=== PATIENT | male | born 1965 | race Caucasian/White ===

== ENCOUNTER 2025-08-08 13:48 | Emergency (ER) | payer BC, SELFPAY ==
--- NOTE | 2025-08-08 13:45 | RT.EKG_ITS ---
APPROVED REPORT Exam: Resting ECG Reason for Exam: SOB Patient Location: E HR:81 bpm ECG Measurements Heart Rate 81 AXIS AL 142 P 77 QRSd 81 QRS 43 QT 367 T 54 QTc 427 Conclusion Sinus rhythm...normal P axis, V-rate 60- 99 Probable left atrial enlargement...P >50mS, <-0.10mV V1 Physician: No STEMI
[2025-08-08 13:50] VITALS: BP 129/80; PULSE 79; RESP 18; TEMP 36.6; O2SAT 98
--- NOTE | 2025-08-08 14:15 | DI.RAD_ITS ---
Exam(s) XR PORTABLE CHEST AP EXAM: XR PORTABLE CHEST AP CLINICAL HISTORY: SOB TECHNIQUE: 2D digital imaging was performed of the chest. One image was obtained. An AP view was obtained. COMPARISON: No exams were available for comparison FINDINGS: MEDIASTINUM: Normal. HEART: Normal. PULMONARY VASCULATURE: Normal. LUNGS: Clear. PLEURAL SPACE: No pleural effusion or pneumothorax. BONE:Within normal limits for the patient's age. OTHER FINDINGS:The tip of the right subclavian central venous catheter is in good position at the junction of the superior vena cava and right atrium. IMPRESSION: No acute pulmonary findings. DATA REPOSITORY: RADIATION DOSE DELIVERED:
[2025-08-08 14:20] VITALS: BP 129/80; PULSE 79; RESP 18; TEMP 36.6; O2SAT 98
--- NOTE | 2025-08-08 14:45 | DI.CT_ITS ---
Exam(s) CT CHEST PE CTA EXAM: CT CHEST PE CTA CLINICAL HISTORY: hx of CA, with SOB. TECHNIQUE: Imaging Protocol: CT angiography of the chest was performed using pulmonary embolus protocol. Multi planar reconstructions were performed. CONTRAST MATERIAL: Intravenous: Omnipaque 350 Contrast volume: 100 cc COMPARISON: No exams were available for comparison FINDINGS: CHEST: PULMONARY ARTERIES: There are no intraluminal filling defects to suggest acute pulmonary emboli. LUNGS: There are no infiltrates nor evidence of pulmonary infarction.. No ominous pulmonary nodules and there are no pleural effusions. MEDIASTINUM: There is no hilar nor mediastinal adenopathy. Visualized thyroid unremarkable. The distal tip of the right Port-A-Cath is in the mid-lower right atrium. CARDIAC: Heart size is upper normal. There is no pericardial effusion.Caliber of the thoracic aorta is within normal limits. No dissection. There is no significant shift of the interventricular septum. PARTIALLY VISUALIZED UPPERMOST ABDOMEN: No adrenal masses. OSSEOUS: No significant osseous lesions.No fractures.. IMPRESSION: 1. No evidence of acute pulmonary emboli. No evidence of pulmonary infarction.No lung nodules nor infiltrates and no pleural effusions. No intrathoracic adenopathy. Called by myself to ER physician on 08/08/2025 at 5:08 p.m. RADIATION DOSE DELIVERED: 88.47mGy.cm Total DLP DATA REPOSITORY: All CT scans at this facility are submitted to the National Radiology Data Registry (NRDR) Dose Index Registry (DIR) with the [employer] (A[employer]). RADIATION OPTIMIZATION: All CT scans at this facility use at least one of these dose optimization techniques: automated exposure control; mA and/or kV adjustment per patient size (includes targeted exams where dose is matched to clinical indication); or iterative reconstruction.
--- NOTE | 2025-08-08 14:55 | ED.GENADUL_ITS ---
Discharge Plan Disposition Patient Disposition: Home Discharge Details Clinical Impression: SOB (shortness of breath) Primary Care Provider: Carmencita Marshall ED Provider: Matthew Hmalin Home Meds and New Rx's Prescriptions: No Action No Known Home Meds Discharge Instructions Instructions: Shortness of Breath, Adult ED Additional Instructions: Your evaluation today is reassuring that you do not have a left for any possible such as a blood clot in your lungs or heart attack today. Please follow-up with your primary care provider regarding your visit to the emergency department today. Be sure to discuss results of all test performed here today to include radiology, and laboratory testing as well as results for any pending cultures. Should your symptoms worsen, or if you develop new concerning symptoms, please return immediately emergency department for further evaluation. Discharge Data Discharge Date/Time-TO BE ENTERED AT DEPARTURE: 08/08/25 18:12 HPI General Date/Time Provider Initiated Documentation: 08/08/25 14:19 . 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 Differential Diagnosis: - Pulmonary embolism: Cancer diagnosis and recent inactivity. Blood work to assess kidney function. CT scan to rule out pulmonary embolism. Anticoagulant therapy if clot detected. - Pneumonia: Shortness of breath and recent cough. Further evaluation if CT scan negative. - Cardiac issues: Positional nature of symptoms and ability to walk long distances without shortness of breath. EKG and cardiac enzyme tests. ED Course: 1450 Patient evaluated, lab and imaging orders placed. At this time patient has no significant pain or nausea to treat Results reviewed. EKG troponin within normal limits. CT pulmonary embolism study negative for pulmonary embolism, or any other acute pathology. Patient is stable for discharge at this time. Clinical Impression: -Shortness of breath Disposition: Discharge: Home. Return if symptoms worsen or new symptoms develop. This document was created with assistance from [employer]. The patient consented to its use. Disposition: Home HPI: The patient is a 60-year-old male with a diagnosis of left-sided squamous cell carcinoma of the neck, currently undergoing cisplatin chemotherapy infusions, presenting with dyspnea. The patient reports experiencing dyspnea for the past week, particularly exacerbated by activities such as bending down or engaging in physical exertion. He has been largely inactive for the past 2.5 months. He does not experience dyspnea at rest but notes its presence during activities such as stair climbing and arm movement. He was able to walk without difficulty yesterday but had to pause while handling firewood due to dyspnea. He denies experiencing fever, chills, chest pain, peripheral edema, or hemoptysis. He has had a cough for the past week, which is not related to food intake. The patient has completed one cycle of chemotherapy and five sessions of radiation therapy, with the last session occurring at approximately 0800 hours. He reports weakness in his left arm, which has shown improvement but has not been utilized recently. There have been no significant changes in the size of the mass or associated pain. The patient's family history is notable for heart disease; his father of a myocardial infarction at the age of 45. The patient has a history of smoking for 10 years, having quit 30 years ago. He has no personal history of cardiovascular disease, hypertension, or hypercholesterolemia. ROS: Negative besides as mentioned above Exam: Vital signs: Reviewed. General Appearance: Alert and oriented. No acute distress. HEENT: NCAT, EOMI, not icteric. External ears normal. No rhinorrhea. Moist mucous membranes. Neck: Supple, full range of motion, there is a swollen ulcerated lymph node over the left anterior base of the neck, No meningeal sign. Respiratory: Clear breath sounds bilaterally, no wheezes, rales, or rhonchi. Cardiovascular: Regular heart sounds, no murmurs, gallops, or rubs. Gastrointestinal: Soft, nondistended, No rebound tenderness. Back: No midline tenderness to palpation or palpable step-offs of the C/T/L spine. Musculoskeletal: No pain on calf compression, no lower extremity edema. Skin: Warm and dry, no rash. Neurological: Normal Gait, Grossly intact. Psychiatric: Appropriate for situation. Rhythm: NSR Rate: 81 [place]: Normal axis Intervals: Normal intervals Other findings: No acute ST segment or T wave changes to suggest acute ischemia. Labs: Laboratory Tests Range/Units 08/08/25 08/08/25 08/08/25 15:13 15:23 16:51 WBC (4.4-10.8) 10^3/uL 8.92 RBC (4.36-5.78) 10^6/uL 4.93 Hgb (13.5-17.5) g/dL 14.7 Hct (40.0-50.0) % 42.8 MCV (80-95) fL 87 MCH (27.0-33.0) pg 29.8 MCHC (32.0-36.0) % 34.3 RDW (11.8-14.1) % 12.6 Plt Count (130-400) 10^3/uL 308 MPV (8.0-11.0) fL 9.3 Immature Gran % % 0.4 Neutrophils % % 73.6 Lymphocytes % % 15.8 Monocytes % % 9.2 Eosinophils % % 0.8 Basophils % % 0.2 Nucleated RBC % (0.0-0.3) % 0.0 Absolute Neutrophils (1.2-6.7) 10^3/uL 6.56 Absolute Lymphocytes (1.2-3.4) 10^3/uL 1.41 Absolute Monocytes (0.1-0.8) 10^3/uL 0.82 H Absolute Eosinophils (0.0-0.7) 10^3/uL 0.07 Absolute Basophils (0.0-0.2) 10^3/uL 0.02 D-Dimer (<500) ng/mlFEU 629 H VBG Lactate (<or=2.0) mmol/L 0.7 Sodium (136-145) mmol/L 135 L Potassium (3.5-5.1) mmol/L 4.0 Chloride (98-107) mmol/L 99 Carbon Dioxide (21.0-32.0) mmol/L 27.1 Anion Gap (3-11) mmol/L 8.9 BUN (7-18) mg/dL 28 H Creatinine (0.70-1.30) mg/dL 1.1 Est GFR (CKD-EPI 2020) (mL/min/1.73m2) 76.85 Glucose (74-106) mg/dL 111 H Calcium (8.5-10.1) mg/dL 9.6 Magnesium (1.8-2.4) mg/dL 2.1 Total Bilirubin (0.2-1.0) mg/dL 0.6 AST (15-37) U/L 19 ALT (16-63) U/L 40 Alkaline Phosphatase (46-116) U/L 89 Troponin I (<or=76) ng/L 6 Cancelled NT-Pro-B Natriuret Pep (<300) pg/mL 39 Total Protein (6.4-8.2) g/dL 7.7 Albumin (3.4-5.0) g/dL 3.3 L Urine Color (Yellow) Yellow Urine Clarity (Clear) Clear Urine pH (5-8) 5.0 Ur Specific [place] (1.005-1.025) 1.015 Urine Protein (Neg-Trace) mg/dL 30 H Urine Ketones (Negative) mg/dL Negative Urine Blood (Negative) Negative Urine Nitrite (Negative) Negative Urine Bilirubin (Negative) Negative Urine Urobilinogen (Up to 0.2) mg/dL 0.2 Ur Leukocyte Esterase (Negative) Negative Urine RBC (0-2) HPF 0-2 Urine WBC (0-5) HPF 0-2 Ur Epithelial Cells (Negative) HPF Few Urine Crystals (Negative) HPF Negative Urine Bacteria (Negative) HPF Rare Urine Casts (Negative) LPF 0-2 Hyaline Urine Mucus (Negative) Trace Ur Culture Indicated? No Urine Glucose (Negative) mg/dL Negative Radiology: Exam(s) XR PORTABLE CHEST AP EXAM: XR PORTABLE CHEST AP CLINICAL HISTORY: SOB TECHNIQUE: 2D digital imaging was performed of the chest. One image was obtained. An AP view was obtained. COMPARISON: No exams were available for comparison FINDINGS: MEDIASTINUM: Normal. HEART: Normal. PULMONARY VASCULATURE: Normal. LUNGS: Clear. PLEURAL SPACE: No pleural effusion or pneumothorax. BONE:Within normal limits for the patient's age. OTHER FINDINGS:The tip of the right subclavian central venous catheter is in good position at the junction of the superior vena cava and right atrium. IMPRESSION: No acute pulmonary findings. DATA REPOSITORY: Related Data Home Medications ?Medication ?Instructions ?Recorded ?Confirmed Unknown [No Known Home Meds] 08/08/25 0 08/08/25 Allergies Allergy/AdvReac Type Severity Reaction Status Date / Time No Known Allergies Allergy Unverified 08/08/25 13:53 General Stated Complaint: SOB ALENA: 3 Course Vital Signs Vital signs: Vital Signs Temperature 36.6 C 08/08/25 13:50 Pulse 79 08/08/25 13:50 Respiratory Rate 18 08/08/25 13:50 Blood Pressure 129/80 08/08/25 13:50 Pulse Oximetry 98 08/08/25 13:50 Temperature 36.6 C 08/08/25 13:50 Temperature Source Oral 08/08/25 13:50 Pulse 79 08/08/25 13:50 Respiratory Rate 18 08/08/25 13:50 Blood Pressure 129/80 08/08/25 13:50 Pulse Oximetry 98 08/08/25 13:50 Oxygen Delivery Method Room Air 08/08/25 13:50 Oxygen Flow Rate 0 08/08/25 13:50 Pain Level 0 08/08/25 13:50 PFSH All Active Problems (Updated 08/08/25 @ 17:15 by Matthew Hamlin MD) SOB (shortness of breath) (Acute) Social History Smoking/Tobacco Use Status: Never Smoking risk assessment performed?: Yes Alcohol Intake: never Drug use: Occasionally Substance use type: marijuana Housing: house Do you feel safe at home: Yes Do you feel safe in your relationship?: Yes
[2025-08-08 15:19] VITALS: RESP 18
[2025-08-08 15:25] LABS: Abs Immature Grans 0.04 10^3/uL (0.0-0.06); HCT 42.8 % (40.0-50.0); HGB 14.7 g/dL (13.5-17.5); Immature Grans % 0.4 %; MCH 29.8 pg (27.0-33.0); MCHC 34.3 % (32.0-36.0); MCV 87 fL (80-95); MPV 9.3 fL (8.0-11.0); Platelet Count 308 10^3/uL (130-400); RBC 4.93 10^6/uL (4.36-5.78); RDW 12.6 % (11.8-14.1); RDW-SD 39.8 fL; WBC 8.92 10^3/uL (4.4-10.8)
[2025-08-08 15:51] LABS: D-Dimer 629 ng/mlFEU (<500)
[2025-08-08 16:02] LABS: ALT 40 U/L (16-63); AST 19 U/L (15-37); Albumin 3.3 g/dL (3.4-5.0); Alkaline Phosphatase 89 U/L (46-116); Anion Gap 8.9 mmol/L (3-11); BUN 28 mg/dL (7-18); Bilirubin, Total 0.6 mg/dL (0.2-1.0); CO2 27.1 mmol/L (21.0-32.0); Calcium 9.6 mg/dL (8.5-10.1); Chloride 99 mmol/L (98-107); Estimated GFR 76.85 (mL/min/1.73m2); Glucose 111 mg/dL (74-106); Magnesium 2.1 mg/dL (1.8-2.4); NT-proBNP 39 pg/mL (<300); Potassium 4.0 mmol/L (3.5-5.1); Sodium 135 mmol/L (136-145); Total Protein 7.7 g/dL (6.4-8.2); Troponin I 6 ng/L (<or=76)
[2025-08-08] MEDS: Normal Saline - Diluent 50 ML VIAL IJ (16:38)
[2025-08-08] MEDS: Omnipaque 350 MG/ML 100 ML BTL IJ (16:38)
[2025-08-08 17:00] LABS: Glucose Negative (Negative)
[2025-08-08 17:05] VITALS: BP 139/85; PULSE 63; RESP 15; O2SAT 98
[2025-08-08 17:09] LABS: C & S Indicated? No; RBC 0-2 HPF (0-2); WBC 0-2 HPF (0-5)
[2025-08-08 18:09] VITALS: BP 150/88; PULSE 66; RESP 18; TEMP 36.7; O2SAT 96
== END 2025-08-08 18:12 | disposition home or self-care (01) ==
PROVIDERS: Emergency Provider General Practice; PCP Family Medicine
DX: R11.0 Nausea (principal); R06.02 Shortness of breath; C76.0 Malignant neoplasm of head, face and neck; Z92.21 Personal history of antineoplastic chemotherapy
CPT/HCPCS: 36415; 71275; 80053; 93005; 99285; 71045; 81003; 81015; 83605; 83735; 83880; 84484; 85025; 85379; 93010; J3490

== ENCOUNTER 2025-08-22 03:41 | Outpatient (RCR) | payer BC, SELFPAY ==
[2025-08-08] MEDS: Normal Saline Flush 10 ML SYR IVP (10:23)
[2025-08-08 10:37] LABS: Abs Immature Grans 0.04 10^3/uL (0.0-0.06); HCT 44.9 % (40.0-50.0); HGB 15.4 g/dL (13.5-17.5); Immature Grans % 0.4 %; MCH 30.1 pg (27.0-33.0); MCHC 34.3 % (32.0-36.0); MCV 88 fL (80-95); MPV 9.4 fL (8.0-11.0); Platelet Count 342 10^3/uL (130-400); RBC 5.12 10^6/uL (4.36-5.78); RDW 12.6 % (11.8-14.1); RDW-SD 40.1 fL; WBC 9.77 10^3/uL (4.4-10.8)
[2025-08-08 11:32] LABS: ALT 42 U/L (16-63); AST 22 U/L (15-37); Albumin 3.4 g/dL (3.4-5.0); Alkaline Phosphatase 94 U/L (46-116); Anion Gap 12.3 mmol/L (3-11); BUN 32 mg/dL (7-18); Bilirubin, Total 0.5 mg/dL (0.2-1.0); CO2 24.7 mmol/L (21.0-32.0); Calcium 9.9 mg/dL (8.5-10.1); Chloride 99 mmol/L (98-107); Glucose 121 mg/dL (74-106); Magnesium 2.2 mg/dL (1.8-2.4); Potassium 4.4 mmol/L (3.5-5.1); Sodium 136 mmol/L (136-145); Total Protein 8.1 g/dL (6.4-8.2)
[2025-08-15 10:14] LABS: Abs Immature Grans 0.01 10^3/uL (0.0-0.06); HCT 40.8 % (40.0-50.0); HGB 14.0 g/dL (13.5-17.5); Immature Grans % 0.2 %; MCH 30.5 pg (27.0-33.0); MCHC 34.3 % (32.0-36.0); MCV 89 fL (80-95); MPV 8.9 fL (8.0-11.0); Platelet Count 226 10^3/uL (130-400); RBC 4.59 10^6/uL (4.36-5.78); RDW 12.8 % (11.8-14.1); RDW-SD 41.4 fL; WBC 5.30 10^3/uL (4.4-10.8)
[2025-08-15 10:30] LABS: ALT 42 U/L (16-63); AST 21 U/L (15-37); Albumin 3.2 g/dL (3.4-5.0); Alkaline Phosphatase 79 U/L (46-116); Anion Gap 5.8 mmol/L (3-11); BUN 15 mg/dL (7-18); Bilirubin, Total 0.4 mg/dL (0.2-1.0); CO2 29.2 mmol/L (21.0-32.0); Calcium 9.2 mg/dL (8.5-10.1); Chloride 102 mmol/L (98-107); Glucose 109 mg/dL (74-106); Magnesium 2.1 mg/dL (1.8-2.4); Potassium 4.0 mmol/L (3.5-5.1); Sodium 137 mmol/L (136-145); Total Protein 7.1 g/dL (6.4-8.2)
[2025-08-15] MEDS: Normal Saline Flush 10 ML SYR IVP (10:41)
[2025-08-22] MEDS: Normal Saline Flush 10 ML SYR IVP (09:52)
[2025-08-22 10:23] LABS: Abs Immature Grans 0.01 10^3/uL (0.0-0.06); HCT 41.5 % (40.0-50.0); HGB 14.1 g/dL (13.5-17.5); Immature Grans % 0.3 %; MCH 29.5 pg (27.0-33.0); MCHC 34.0 % (32.0-36.0); MCV 87 fL (80-95); MPV 9.1 fL (8.0-11.0); Platelet Count 271 10^3/uL (130-400); RBC 4.78 10^6/uL (4.36-5.78); RDW 12.4 % (11.8-14.1); RDW-SD 39.8 fL; WBC 3.52 10^3/uL (4.4-10.8)
[2025-08-22 10:38] LABS: ALT 48 U/L (16-63); AST 26 U/L (15-37); Albumin 3.2 g/dL (3.4-5.0); Alkaline Phosphatase 85 U/L (46-116); Anion Gap 6.9 mmol/L (3-11); BUN 16 mg/dL (7-18); Bilirubin, Total 0.5 mg/dL (0.2-1.0); CO2 29.1 mmol/L (21.0-32.0); Calcium 9.2 mg/dL (8.5-10.1); Chloride 101 mmol/L (98-107); Glucose 103 mg/dL (74-106); Magnesium 2.2 mg/dL (1.8-2.4); Potassium 3.9 mmol/L (3.5-5.1); Sodium 137 mmol/L (136-145); Total Protein 7.4 g/dL (6.4-8.2)
== END 2025-08-23 23:59 | disposition home or self-care (01) ==
LOC: INF 03:41
PROVIDERS: PCP Family Medicine; Visit Provider Internal Medicine Hematology
DX: Z45.1 Encounter for adjustment and management of infusion pump (principal); C09.9 Malignant neoplasm of tonsil, unspecified
CPT/HCPCS: 36591; 80053; 83735; 85025

== ENCOUNTER 2025-09-19 00:24 | Outpatient (RCR) | payer BC, SELFPAY ==
[2025-08-29] MEDS: Normal Saline Flush 10 ML SYR IVP (10:38)
[2025-08-29 10:53] LABS: Abs Immature Grans 0.02 10^3/uL (0.0-0.06); HCT 37.4 % (40.0-50.0); HGB 12.8 g/dL (13.5-17.5); Immature Grans % 0.3 %; MCH 30.6 pg (27.0-33.0); MCHC 34.2 % (32.0-36.0); MCV 90 fL (80-95); MPV 9.4 fL (8.0-11.0); Platelet Count 162 10^3/uL (130-400); RBC 4.18 10^6/uL (4.36-5.78); RDW 12.9 % (11.8-14.1); RDW-SD 41.6 fL; WBC 6.48 10^3/uL (4.4-10.8)
[2025-08-29 11:11] LABS: ALT 98 U/L (16-63); AST 41 U/L (15-37); Albumin 3.0 g/dL (3.4-5.0); Alkaline Phosphatase 71 U/L (46-116); Anion Gap 5.4 mmol/L (3-11); BUN 29 mg/dL (7-18); Bilirubin, Total 0.3 mg/dL (0.2-1.0); CO2 31.6 mmol/L (21.0-32.0); Calcium 8.7 mg/dL (8.5-10.1); Chloride 102 mmol/L (98-107); Glucose 133 mg/dL (74-106); Magnesium 1.9 mg/dL (1.8-2.4); Potassium 4.0 mmol/L (3.5-5.1); Sodium 139 mmol/L (136-145); Total Protein 6.7 g/dL (6.4-8.2)
[2025-09-05] MEDS: Normal Saline Flush 10 ML SYR IVP (10:12)
[2025-09-05 10:28] LABS: Abs Immature Grans 0.01 10^3/uL (0.0-0.06); HCT 30.4 % (40.0-50.0); HGB 10.2 g/dL (13.5-17.5); Immature Grans % 0.3 %; MCH 29.8 pg (27.0-33.0); MCHC 33.6 % (32.0-36.0); MCV 89 fL (80-95); MPV 9.2 fL (8.0-11.0); Platelet Count 144 10^3/uL (130-400); RBC 3.42 10^6/uL (4.36-5.78); RDW 13.2 % (11.8-14.1); RDW-SD 41.3 fL; WBC 3.54 10^3/uL (4.4-10.8)
[2025-09-05 10:50] LABS: ALT 67 U/L (16-63); AST 26 U/L (15-37); Albumin 2.8 g/dL (3.4-5.0); Alkaline Phosphatase 61 U/L (46-116); Anion Gap 7.9 mmol/L (3-11); BUN 28 mg/dL (7-18); Bilirubin, Total 0.4 mg/dL (0.2-1.0); CO2 30.1 mmol/L (21.0-32.0); Calcium 8.4 mg/dL (8.5-10.1); Chloride 102 mmol/L (98-107); Glucose 141 mg/dL (74-106); Magnesium 1.8 mg/dL (1.8-2.4); Potassium 3.6 mmol/L (3.5-5.1); Sodium 140 mmol/L (136-145); Total Protein 6.1 g/dL (6.4-8.2)
[2025-09-12 09:36] LABS: Abs Immature Grans 0.00 10^3/uL (0.0-0.06); HCT 29.9 % (40.0-50.0); HGB 10.2 g/dL (13.5-17.5); Immature Grans % 0.0 %; MCH 30.7 pg (27.0-33.0); MCHC 34.1 % (32.0-36.0); MCV 90 fL (80-95); MPV 9.0 fL (8.0-11.0); Platelet Count 116 10^3/uL (130-400); RBC 3.32 10^6/uL (4.36-5.78); RDW 13.9 % (11.8-14.1); RDW-SD 42.2 fL; WBC 2.03 10^3/uL (4.4-10.8)
[2025-09-12] MEDS: Normal Saline Flush 10 ML SYR IVP (09:43)
[2025-09-12 09:54] LABS: ALT 43 U/L (16-63); AST 17 U/L (15-37); Albumin 2.7 g/dL (3.4-5.0); Alkaline Phosphatase 67 U/L (46-116); Anion Gap 5.1 mmol/L (3-11); BUN 23 mg/dL (7-18); Bilirubin, Total 0.3 mg/dL (0.2-1.0); CO2 29.9 mmol/L (21.0-32.0); Calcium 8.8 mg/dL (8.5-10.1); Chloride 103 mmol/L (98-107); Glucose 90 mg/dL (74-106); Magnesium 1.9 mg/dL (1.8-2.4); Potassium 4.4 mmol/L (3.5-5.1); Sodium 138 mmol/L (136-145); Total Protein 6.8 g/dL (6.4-8.2)
[2025-09-19 08:47] LABS: Abs Immature Grans 0.00 10^3/uL (0.0-0.06); HCT 28.1 % (40.0-50.0); HGB 9.6 g/dL (13.5-17.5); Immature Grans % 0.0 %; MCH 31.2 pg (27.0-33.0); MCHC 34.2 % (32.0-36.0); MCV 91 fL (80-95); MPV 9.2 fL (8.0-11.0); Platelet Count 122 10^3/uL (130-400); RBC 3.08 10^6/uL (4.36-5.78); RDW 14.9 % (11.8-14.1); RDW-SD 43.9 fL
[2025-09-19] MEDS: Normal Saline Flush 10 ML SYR IVP (09:04)
[2025-09-19 09:09] LABS: ALT 33 U/L (16-63); AST 15 U/L (15-37); Albumin 2.7 g/dL (3.4-5.0); Alkaline Phosphatase 66 U/L (46-116); Anion Gap 5.6 mmol/L (3-11); BUN 25 mg/dL (7-18); Bilirubin, Total 0.3 mg/dL (0.2-1.0); CO2 30.4 mmol/L (21.0-32.0); Calcium 8.7 mg/dL (8.5-10.1); Chloride 102 mmol/L (98-107); Glucose 126 mg/dL (74-106); Magnesium 1.6 mg/dL (1.8-2.4); Potassium 3.9 mmol/L (3.5-5.1); Sodium 138 mmol/L (136-145); Total Protein 6.6 g/dL (6.4-8.2)
[2025-09-19 10:04] LABS: RBC Morphology Normal; WBC 0.90 10^3/uL (4.4-10.8)
== END 2025-09-23 23:59 | disposition home or self-care (01) ==
LOC: INF 00:24
PROVIDERS: PCP Family Medicine; Visit Provider Internal Medicine Hematology
DX: Z45.2 Encounter for adjustment and management of vascular access device (principal); C09.9 Malignant neoplasm of tonsil, unspecified
CPT/HCPCS: 36591; 80053; 83735; 85025

== ENCOUNTER 2025-10-03 11:45 | Outpatient (RCR) | payer BC, SELFPAY ==
[2025-09-26] MEDS: Normal Saline Flush 10 ML SYR IVP (08:28)
[2025-09-26 08:34] LABS: Abs Immature Grans 0.01 10^3/uL (0.0-0.06); HCT 27.9 % (40.0-50.0); HGB 9.4 g/dL (13.5-17.5); MCH 31.6 pg (27.0-33.0); MCHC 33.7 % (32.0-36.0); MCV 94 fL (80-95); MPV 9.1 fL (8.0-11.0); Platelet Count 275 10^3/uL (130-400); RBC 2.97 10^6/uL (4.36-5.78); RDW 17.7 % (11.8-14.1); RDW-SD 54.0 fL
[2025-09-26 08:57] LABS: ALT 28 U/L (16-63); AST 14 U/L (15-37); Albumin 2.8 g/dL (3.4-5.0); Alkaline Phosphatase 67 U/L (46-116); Anion Gap 6.6 mmol/L (3-11); BUN 25 mg/dL (7-18); Bilirubin, Total 0.3 mg/dL (0.2-1.0); CO2 30.4 mmol/L (21.0-32.0); Calcium 8.9 mg/dL (8.5-10.1); Chloride 103 mmol/L (98-107); Estimated GFR 101.32 (mL/min/1.73m2); Glucose 114 mg/dL (74-106); Magnesium 1.8 mg/dL (1.8-2.4); Potassium 3.8 mmol/L (3.5-5.1); Sodium 140 mmol/L (136-145); Total Protein 6.8 g/dL (6.4-8.2)
[2025-09-26 09:21] LABS: Immature Grans % 0.0 %
[2025-09-26 09:23] LABS: Anisocytosis 2+
[2025-09-26 09:24] LABS: Microcytosis 1+; Polychromasia Present
[2025-09-26 09:26] LABS: WBC 0.93 10^3/uL (4.4-10.8)
[2025-10-03] MEDS: Normal Saline Flush 10 ML SYR IVP (11:47)
[2025-10-03 11:57] LABS: Abs Immature Grans 0.11 10^3/uL (0.0-0.06); HCT 27.7 % (40.0-50.0); HGB 9.2 g/dL (13.5-17.5); Immature Grans % 3.8 %; MCH 31.5 pg (27.0-33.0); MCHC 33.2 % (32.0-36.0); MCV 95 fL (80-95); MPV 9.1 fL (8.0-11.0); Platelet Count 277 10^3/uL (130-400); RBC 2.92 10^6/uL (4.36-5.78); RDW 18.6 % (11.8-14.1); RDW-SD 62.8 fL; WBC 2.88 10^3/uL (4.4-10.8)
[2025-10-03 12:16] LABS: ALT 23 U/L (16-63); AST 16 U/L (15-37); Albumin 2.9 g/dL (3.4-5.0); Alkaline Phosphatase 70 U/L (46-116); Anion Gap 7.1 mmol/L (3-11); BUN 33 mg/dL (7-18); Bilirubin, Total 0.3 mg/dL (0.2-1.0); CO2 29.9 mmol/L (21.0-32.0); Calcium 8.9 mg/dL (8.5-10.1); Chloride 101 mmol/L (98-107); Estimated GFR 76.85 (mL/min/1.73m2); Glucose 116 mg/dL (74-106); Magnesium 2.0 mg/dL (1.8-2.4); Potassium 4.6 mmol/L (3.5-5.1); Sodium 138 mmol/L (136-145); Total Protein 7.0 g/dL (6.4-8.2)
== END 2025-10-23 23:59 | disposition home or self-care (01) ==
LOC: INF 11:45
PROVIDERS: PCP Family Medicine; Visit Provider Internal Medicine Hematology
DX: Z45.2 Encounter for adjustment and management of vascular access device (principal); C09.9 Malignant neoplasm of tonsil, unspecified
CPT/HCPCS: 36591; 80053; 83735; 85025